=== PATIENT | female | born 1980 | race Two or more races ===

== ENCOUNTER 2020-08-28 13:17 | Emergency (ER) | payer OTHER ==
[~2020-08-28] VITALS: Ht 172.7 cm; Wt 126.1 kg
[2020-08-28] MEDS ORDERED: CHLORTHALIDONE PO (13:39)
[2020-08-28] MEDS ORDERED: BUTALBIT-ACETA1 EACH PO (18:24)
[2020-08-28] MEDS ORDERED: COZAAR50 MG PO (18:24)
== END 2020-08-28 19:22 | disposition home or self-care (01) ==
LOC: ER 13:17
DX: I16.1 Hypertensive emergency (principal); I10 Essential (primary) hypertension; G44.209 Tension-type headache, unspecified, not intractable